=== PATIENT | female | born 1995 | race Caucasian/White ===

== ENCOUNTER 2017-09-24 12:36 | Emergency (ER) | payer BC ==
--- NOTE | 2017-09-24 13:23 | ED ---
HPI Chest Pain - HPI Summary HPI Summary: 22 y/o female presents to the ED c/o CP starting last night. Associated sx: SOB due to pain, L upper leg pain (pt stepped on by a bull several years ago); pain aggravated with movement. Pain aggravated with deep breaths. The pain is intermittent, located in the mid-sternal region now. Pain started on L side and moved to mid-sternal region after moving around in bed. Pt sent from . Not aggravated or alleviated with food. No relevant PMHx. FHx blood clot in leg. LNMP ended last week. - History of Current Complaint Chief Complaint: EDChestPainROMI Time Seen by Provider: 09/24/17 13:13 Hx Obtained From: Patient Onset/Duration: Started Hours Ago Timing: Intermittent Pain Intensity: 7 Pain Scale Used: 0-10 Numeric Chest Pain Location: Mid Sternal Aggravating Factor(s): Deep Breaths Alleviating Factor(s): Nothing Associated Signs and Symptoms: Positive: Chest Pain, Shortness of Breath, Other : - L upper leg pain - Allergy/Home Medications Allergies/Adverse Reactions: Allergies Allergy/AdvReac Type Severity Reaction Status Date / Time No Known Allergies Allergy Verified 09/24/17 12:44 Home Medications: Home Medications Ascorbic Acid TAB* [Vitamin C TAB*] 500 mg PO DAILY 09/24/17 [History Confirmed 09/24/17] PMH/Surg Hx/FS Hx/Imm Hx Previously Healthy: No Endocrine/Hematology History: Denies: Hx Diabetes Cardiovascular History: Denies: Hx Myocardial Infarction Infectious Disease History: No Infectious Disease History: Denies: Traveled Outside the [place] in Last 30 Days - Family History Known Family History: Positive: Blood Disorder - brother - blood clots in leg - Social History Occupation: Employed Full-time Alcohol Use: Rare Hx Substance Use: No Substance Use Type: Reports: None Hx Tobacco Use: No Smoking Status (MU): Never Smoked Tobacco Review of Systems Constitutional: Negative Eyes: Negative ENT: Negative Positive: Chest Pain Positive: Shortness Of Breath Gastrointestinal: Negative Genitourinary: Negative Positive: Other - L upper leg pain Skin: Negative Neurological: Negative Psychological: Normal All Other Systems Reviewed And Are Negative: Yes Physical Exam - Summary Physical Exam Summary: Constitutional: Well-developed, Well-nourished, Alert. (-) Distressed Skin: Warm, Dry HENT: Normocephalic; Atraumatic Eyes: Conjunctiva normal Neck: Musculoskeletal ROM normal neck. (-) JVD, (-) Stridor, (-) Tracheal deviation Cardio: Rhythm regular, rate normal, Heart sounds normal; Intact distal pulses; The pedal pulses are 2+ and symmetric. Radial pulses are 2+ and symmetric. (-) Murmur Pulmonary/Chest wall: Effort normal. (-) Respiratory distress, (-) Wheezes, (-) Rales Abd: Soft, (-), epigastric tenderness, (-) Distension, (-) Guarding, (-) Rebound Musculoskeletal: (-) Edema. No leg swelling; minimal L leg tenderness to upper inner thigh Lymph: (-) Cervical adenopathy Neuro: Alert, Oriented x3 Psych: Mood and affect Normal Triage Information Reviewed: Yes Vital Signs On Initial Exam: Initial Vitals Temp Pulse Resp BP Pulse Ox 98.8 F 87 17 130/84 100 09/24/17 12:40 09/24/17 12:40 09/24/17 12:40 09/24/17 12:40 09/24/17 12:40 Vital Signs Reviewed: Yes Diagnostics - Vital Signs Vital Signs Temp Pulse Resp BP Pulse Ox 09/24/17 12:40 98.8 F 87 17 130/84 100 - Laboratory Result Diagrams: 09/24/17 13:57 09/24/17 13:57 Lab Statement: Any lab studies that have been ordered have been reviewed, and results considered in the medical decision making process. - Radiology CXR Xray Interpretation: No Acute Changes - No evidence for acute intrathoracic disease. Radiology Interpretation Completed By: Radiologist - Ultrasound No standard instances Ultrasound Interpretation: No Acute Changes - KIMBERLEE DOPPLER - NO EVIDENCE OF DEEP VEINOUS THROMBOSIS IS IDENTIFIED Ultrasound Interpretation Completed By: Radiologist - EKG 1 EKG Interpretation: 12:54 - SR @ 80 BPM. No STEMI Chest Pain Course/Dx - Course Assessment/Plan: Risk factors for PE include oral contraceptives and family history. vital signs normal. D-dimer and DVT test negative. Pain resolved following GI cocktail. - Diagnoses Provider Diagnoses: Epigastric pain, Chronic leg pain Discharge - Discharge Plan Condition: Stable Disposition: HOME Prescriptions: Omeprazole CAP* [Prilosec CAP* 20 MG] 20 mg PO DAILY #14 cap Patient Education Materials: Epigastric Pain (ED), Leg Pain (ED) Referrals: [facility] [Outside] [facility]FERR[facility] [Outside] - 3 Days (PLEASE F/U IN 2-3 DAYS) Additional Instructions: RETURN FOR CHANGING/WORSENING SYMPTOMS
[2017-09-24] MEDS ORDERED: Ibuprofen TAB* 600 MG PO ONE (13:56)
[2017-09-24] MEDS ORDERED: Lidocaine 2% VISCOUS* 15 ML UDC PO ONE (14:05)
[2017-09-24] MEDS ORDERED: Al Hydrox/Mg Hydrox/Simet LIQ* 30 ML UDC PO ONE (14:05)
[2017-09-24 14:08] LABS: Hematocrit 38 % (35-47); Hemoglobin 13.1 g/dl (12.0-16.0); Mean Corpuscular HGB Conc 35 g/dl (31-36); Mean Corpuscular Hemoglobin 31 pg (27-31); Mean Corpuscular Volume 89 fL (80-97); Mean Platelet Volume 9.4 um3 (7.4-10.4); Platelet Count 121 10^3/ul (150-450); Red Blood Count 4.24 10^6/ul (4.00-5.40); Red Cell Distribution Width 12 % (10.5-15); White Blood Count 4.9 10^3/ul (3.5-10.8)
--- NOTE | 2017-09-24 14:38 | RAD ---
INDICATION: Chest pain, shortness of breath. COMPARISON: No relevant prior exams available on the [facility] for comparison. TECHNIQUE: Dual energy PA and routine lateral views of the chest were obtained. REPORT: Clear lungs and pleural spaces. Negative for pneumothorax. The heart, pulmonary vasculature, and mediastinal contours are unremarkable. Unremarkable osseous structures and soft tissue contours. IMPRESSION: #. No evidence for acute intrathoracic disease.
[2017-09-24 15:04] LABS: EGFR Non-African American 101.6 (>60)
--- NOTE | 2017-09-24 15:42 | RAD ---
Indication: Leg edema. Duplex Doppler sonography of the deep venous system of the left lower extremity deep venous system was performed. Bilaterally the common femoral veins appear patent and compressible. Left proximal greater saphenous vein, proximal deep femoral vein, femoral vein, popliteal vein, posterior tibial veins and peroneal veins appear patent and compressible. IMPRESSION: NO EVIDENCE OF DEEP VENOUS THROMBOSIS IS IDENTIFIED.
[2017-09-24 16:26] VITALS: BP 115/63
== END 2017-09-24 16:27 | disposition home or self-care (01) ==
LOC: ED 12:36
DX: R07.89 Other chest pain (principal); R10.13 Epigastric pain; M79.652 Pain in left thigh; G89.29 Other chronic pain; Z83.2 Family history of diseases of the blood and blood-forming organs and certain disorders involving the immune mechanism
CPT/HCPCS: 36415; 71046; 80053; 84702; 85027; 85379; 93005; 99283; A9270-GY